=== PATIENT | female | born 1940 | race Caucasian/White ===

== ENCOUNTER → 2024-06-03 12:29 | Outpatient (REF) | payer MEDICARE, SELFPAY | LOC: HWRAD 12:29 | PROVIDERS: ATTENDING PHYSICIAN Obstetrics & Gynecology Gynecology; FAMILY PHYSICIAN Internal Medicine | DX: R10.2 Pelvic and perineal pain (principal) | CPT/HCPCS: 76830; 76856 ==

== ENCOUNTER → 2024-06-08 13:46 | Outpatient (REF) | payer MEDICARE, SELFPAY | LOC: HWWDC 13:46 | PROVIDERS: ATTENDING PHYSICIAN Obstetrics & Gynecology Gynecology; FAMILY PHYSICIAN Internal Medicine | DX: Z12.31 Encounter for screening mammogram for malignant neoplasm of breast (principal) | CPT/HCPCS: 77063; 77067 ==

== ENCOUNTER → 2024-06-15 12:45 | Outpatient (REF) | payer MEDICARE, SELFPAY | LOC: HWRAD 12:45 | PROVIDERS: ATTENDING PHYSICIAN Obstetrics & Gynecology Gynecology; FAMILY PHYSICIAN Internal Medicine | DX: M85.80 Other specified disorders of bone density and structure, unspecified site (principal); M85.89 Other specified disorders of bone density and structure, multiple sites | CPT/HCPCS: 77080 ==

== ENCOUNTER → 2025-02-09 09:32 | Outpatient (REF) | payer MEDICARE, SELFPAY | LOC: RAD 09:32 | PROVIDERS: ATTENDING PHYSICIAN Nurse Practitioner Adult Health | DX: M54.2 Cervicalgia (principal); M54.12 Radiculopathy, cervical region | CPT/HCPCS: 72050 ==

== ENCOUNTER 2025-03-27 17:07 | Outpatient (RCR) | payer MEDICARE, SELFPAY | END 2025-03-27 23:59 | disposition home or self-care (01) | LOC: RPT 17:07 | PROVIDERS: ATTENDING PHYSICIAN Nurse Practitioner Adult Health | DX: M54.2 Cervicalgia (principal); M54.12 Radiculopathy, cervical region; Z73.6 Limitation of activities due to disability | CPT/HCPCS: 97010; 97110; 97112; 97140; 97162 ==

== ENCOUNTER → 2025-06-01 13:21 | Outpatient (REF) | payer MEDICARE, SELFPAY | LOC: HWRAD 13:21 | PROVIDERS: ATTENDING PHYSICIAN Internal Medicine | DX: J34.89 Other specified disorders of nose and nasal sinuses (principal) | CPT/HCPCS: 70486 ==

== ENCOUNTER → 2025-06-16 06:58 | Outpatient (REF) | payer MEDICARE, SELFPAY | LOC: HWWDC 06:58 | PROVIDERS: ATTENDING PHYSICIAN Nurse Practitioner Adult Health | DX: Z12.31 Encounter for screening mammogram for malignant neoplasm of breast (principal) | CPT/HCPCS: 77063; 77067 ==